=== PATIENT | female | born 1960 | race Caucasian/White ===

== ENCOUNTER 2016-06-19 13:34 | Emergency (ER) | payer OTHER ==
[~2016-06-19] VITALS: Ht 154.9 cm; Wt 66.7 kg
[2016-06-19 13:34] VITALS: BP_SYST 111
--- NOTE | 2016-06-19 13:34 | NUR ---
Arrived via gurney from OR. Placed in bed 7
--- NOTE | 2016-06-19 13:35 | NUR ---
Dr. Castro at bedside for evaluation
--- NOTE | 2016-06-19 13:40 | NUR ---
Patient in stable condition, alert and oriented x4. was cleaning in OR when she accidently tripped over cables and fell forward and hit right side of face and right underarm/rib area area onto table along with right knee onto floor. Patient denies knocking out. has pain to right face, right underarm/rib area and right knee-full range of motion noted to all areas, no deformities noted. Denies neck pain. No other complaints/injuriers per patient or noted. Addendum: 06/19/16 at 1415 by POPPY right side of face near eyebrow area
--- NOTE | 2016-06-19 13:43 | NUR ---
Off unit for radiology via [facility]
[2016-06-19] MEDS ORDERED: KETOROLAC TROMETHAMINE 60 MG/2 ML VIAL IM ONE (14:00)
--- NOTE | 2016-06-19 15:26 | NUR ---
Endorsed pt mani Ca RN
[2016-06-19 16:12] VITALS: BP_SYST 111
--- NOTE | 2016-06-19 16:12 | NUR ---
Patient given written and verbal discharge instructions and verbalizes understanding. ER MD KENNEDY discussed with patient the results and treatment provided. Patient in stable condition. ID arm band removed. Rx of IBUPROFEN 600 given. Patient educated on pain management and to follow up with PMD. Pain Scale 2/10. Opportunity for questions provided and answered.
== END 2016-06-19 16:12 | disposition home or self-care (01) ==
LOC: SED 13:34
DX: S83.91XA Sprain of unspecified site of right knee, initial encounter (principal); S43.401A Unspecified sprain of right shoulder joint, initial encounter; S09.90XA Unspecified injury of head, initial encounter; R51 Headache; W18.09XA Striking against other object with subsequent fall, initial encounter; Y93.89 Activity, other specified; Y92.239 Unspecified place in hospital as the place of occurrence of the external cause; Y99.8 Other external cause status
CPT/HCPCS: 70450; 72040; 73030; 73564; 96372; 99284; J1885